=== PATIENT | female | born 1980 | race Caucasian/White ===

== ENCOUNTER 2017-08-28 17:52 | Inpatient (IN) | payer OTHER ==
[~2017-08-28] VITALS: Ht 165.1 cm; Wt 135.2 kg
[2017-08-28] MEDS ORDERED: PRENATAL 19 TA1 EACH PO (18:05)
[2017-08-28] MEDS ORDERED: AMOXICILLIN500 M1 PO (18:07)
[2017-08-28] MEDS ORDERED: NASACORT16.9 ML NASAL (18:07)
[2017-08-28] MEDS ORDERED: ASPIR 8181 MG PO (18:08)
== END 2017-08-30 19:22 | disposition home or self-care (01) | DRG 780 ==
LOC: OBS/DEL 17:52 → LDR 08-29 14:15
PROC: BY4FZZZ Ultrasonography of Third Trimester, Single Fetus (ICD-10-PCS; principal; 2017-08-29)
PROC: BW40ZZZ Ultrasonography of Abdomen (ICD-10-PCS; 2017-08-29)
PROC: 4A1HXCZ Monitoring of Products of Conception, Cardiac Rate, External Approach (ICD-10-PCS; 2017-08-29)
DX: O47.03 False labor before 37 completed weeks of gestation, third trimester (principal); R10.2 Pelvic and perineal pain

== ENCOUNTER 2017-09-28 17:46 | Inpatient (IN) | payer OTHER ==
[~2017-09-28] VITALS: Ht 165.1 cm; Wt 148.3 kg
[~2017-09-28 17:46] MED LIST: AMOXICILLIN500 M1 PO; ASPIR 8181 MG PO; NASACORT16.9 ML NASAL; PRENATAL 19 TA1 EACH PO
== END 2017-09-30 17:25 | DRG 780 ==
LOC: OBS/DEL 17:46 → LDR 09-29 14:47
PROC: BY4FZZZ Ultrasonography of Third Trimester, Single Fetus (ICD-10-PCS; principal; 2017-09-29)
PROC: 4A1HXCZ Monitoring of Products of Conception, Cardiac Rate, External Approach (ICD-10-PCS; 2017-09-29)
DX: O47.03 False labor before 37 completed weeks of gestation, third trimester (principal); O13.3 Gestational [pregnancy-induced] hypertension without significant proteinuria, third trimester

== ENCOUNTER 2017-10-23 08:03 | Inpatient (IN) | payer OTHER ==
[~2017-10-23] VITALS: Ht 165.1 cm; Wt 3.6 kg
== END 2017-10-26 13:49 | disposition home or self-care (01) | DRG 766 ==
LOC: OB/GYN 08:03 → LDR 08:03 → OB/GYN 21:41
PROVIDERS: Obstetrics & Gynecology Obstetrics
PROC: 4A1HXCZ Monitoring of Products of Conception, Cardiac Rate, External Approach (ICD-10-PCS; 2017-10-23)
PROC: 10D00Z1 Extraction of Products of Conception, Low, Open Approach (ICD-10-PCS; principal; 2017-10-23 13:45)
DX: O99.824 Streptococcus B carrier state complicating childbirth (principal); Z3A.38 38 weeks gestation of pregnancy; Z37.0 Single live birth